=== PATIENT | female | born 1985 | race Two or more races ===

== ENCOUNTER 2018-07-24 22:08 | Emergency (ER) | payer BC ==
[~2018-07-24] VITALS: Ht 167.6 cm; Wt 68.0 kg
[2018-07-25] MEDS ORDERED: CIPRO500 MG PO (08:11)
[2018-07-25] MEDS ORDERED: KETO10TA2 PO (08:11)
== END 2018-07-25 09:05 | disposition home or self-care (01) ==
LOC: ER 22:08
DX: K59.09 Other constipation (principal); N39.0 Urinary tract infection, site not specified